=== PATIENT | male | born 1960 | race Caucasian/White ===

== ENCOUNTER 2017-04-27 02:01 | Inpatient (IN) | payer OTHER ==
[~2017-04-27] VITALS: Ht 170.2 cm; Wt 104.3 kg
[2017-04-27] MEDS ORDERED: ONDANSETRON HCL 4MG/2ML VIAL IV NR (02:39)
[2017-04-27] MEDS ORDERED: MORPHINE SULFATE 10 MG/ML CPJ IV NR (02:39)
[2017-04-27] MEDS ORDERED: SODIUM CHLORIDE 0.9% 1,000 ML IV ONE (02:39)
[2017-04-27 03:03] LABS: BASOPHILS % 1.3 % (0.0-2.0); EOSINOPHILS % 1.8 % (0.0-5.0); HEMATOCRIT. 44.3 % (42.0-52.0); HEMOGLOBIN. 15.5 g/dL (14.0-18.0); LYMPHOCYTES % 23.6 % (20.0-50.0); MEAN CORPUSCULAR HEMOGLOBIN 35.3 pg (28.0-32.0); MEAN CORPUSCULAR VOLUME 100.7 fL (80.0-94.0); MEAN PLATELET VOLUME 9.8 fl (7.4-10.4); MONOCYTES % 7.7 % (2.0-8.0); NEUTROPHILS % 65.6 % (40.0-76.0); PLATELET 147 x1000/uL (130-400); RED CELL DISTRIBUTION WIDTH 12.6 % (11.6-14.6)
[2017-04-27 03:12] LABS: D-DIMER 0.23 mg/L FEU (<0.50)
[2017-04-27 03:20] LABS: CARBON DIOXIDE 22 mEq/L (21-32); CHLORIDE 106 mEq/L (98-107); TROPONIN I < 0.02 ng/mL (0.00-0.04)
[2017-04-27] MEDS ORDERED: CLONIDINE 0.1MG TABLET PO PRN (06:45)
[2017-04-27] MEDS ORDERED: LORAZEPAM 0.5MG TABLET PO PRN (06:45)
[2017-04-27] MEDS ORDERED: IPRATROPIUM/ALBUTEROL 0.5-3(2.5)MG/3ML NEB INH PRN (06:45)
[2017-04-27] MEDS ORDERED: GUAIFENESIN 200MG/10ML SUGAR FREE UDC PO PRN (06:45)
[2017-04-27] MEDS ORDERED: MAGNESIUM/ALUMINUM HYDROXIDE/SIMETHICONE 30ML UDC PO PRN (06:45)
[2017-04-27] MEDS ORDERED: DIPHENHYDRAMINE 50MG/ML VIAL IV PRN (06:45)
[2017-04-27] MEDS ORDERED: KETOROLAC 15MG/ML VIAL IV PRN (06:45)
[2017-04-27] MEDS ORDERED: NITROGLYCERIN 0.4MG TABLET SL SL PRN (06:45)
[2017-04-27] MEDS ORDERED: ONDANSETRON HCL 4MG/2ML VIAL IV PRN (06:45)
[2017-04-27 08:45] VITALS: BP 165/111
[2017-04-27] MEDS ORDERED: DOCUSATE SODIUM 100MG CAPSULE PO PRN (09:00)
[2017-04-27] MEDS ORDERED: ENOXAPARIN 40MG/0.4ML SYR SUBCUT SCH (09:00)
[2017-04-27] MEDS ORDERED: NA PHOS,M-B/NA PHOS,DI-BA ENEMA 118ML PR PRN (09:00)
[2017-04-27] MEDS: FAMOTIDINE 20MG/2ML VIAL IV SCH ×2 (09:14→20:07)
[2017-04-27] MEDS: ASPIRIN 325MG EC TABLET PO SCH (09:14)
[2017-04-27] MEDS: METOPROLOL TARTRATE 25MG TABLET PO SCH ×2 (09:14→20:07)
[2017-04-27] MEDS ORDERED: OMEP40CA34 PO (09:31)
[2017-04-27] MEDS ORDERED: POTASSIUM CHLORIDE 20MEQ TABLET SR PO SCH (11:45)
[2017-04-27 12:31] VITALS: BP 157/101
[2017-04-27] MEDS: AMLODIPINE 5MG TABLET PO SCH ×2 (14:43→20:07)
[2017-04-27 16:33] LABS: TROPONIN I 0.64 ng/mL (0.00-0.04)
[2017-04-27 17:12] VITALS: BP 148/102
[2017-04-27] MEDS: GEMFIBROZIL 600MG TABLET PO SCH (17:31)
[2017-04-27] MEDS: ENOXAPARIN 100MG/ML SYR SUBCUT SCH (17:32)
[2017-04-27] MEDS ORDERED: POTASSIUM CHLORIDE 20MEQ/PACKET PO ONE (17:45)
[2017-04-27 20:06] VITALS: BP 146/89
[2017-04-27] MEDS: ZOLPIDEM TARTRATE 5MG TABLET PO PRN (20:07)
[2017-04-27] MEDS: ATORVASTATIN CALCIUM 10MG TABLET PO SCH (20:07)
[2017-04-27 21:48] LABS: *AMPHETAMINES SCREEN URINE NEGATIVE (NEGATIVE); *BARBITURATES SCREEN URINE NEGATIVE (NEGATIVE); *BENZODIAZEPINES SCREEN URINE NEGATIVE (NEGATIVE); *COCAINE SCREEN URINE NEGATIVE (NEGATIVE); CANNABINOID URINE SCREEN NEGATIVE (NEGATIVE); METHADONE URINE SCREEN NEGATIVE (NEGATIVE); OPIATES URINE SCREEN PRESUMTIVE POSITIVE (NEGATIVE); PHENCYCLIDINE URINE SCREEN NEGATIVE (NEGATIVE)
[2017-04-27 23:12] LABS: CREATINE KINASE MB FRACTION 2.3 ng/mL (0.5-3.6)
[2017-04-27 23:16] LABS: TROPONIN I 0.79 ng/mL (0.00-0.04)
[2017-04-28] VITALS (7 sets, daily range): BP systolic 113–141; BP diastolic 68–91
[2017-04-28] MEDS: ACETAMINOPHEN 325MG TABLET PO PRN ×3 (05:01→18:36)
[2017-04-28] MEDS: ENOXAPARIN 100MG/ML SYR SUBCUT SCH (05:01)
[2017-04-28] MEDS ORDERED: NITROGLYCERIN 50MCG/ML 10ML VIAL (CATH LAB) IV ONE (06:00)
[2017-04-28] MEDS ORDERED: NICARDIPINE 100MCG/ML 10ML VIAL (CATH LAB) IV ONE (06:00)
[2017-04-28] MEDS ORDERED: HEPARIN SODIUM 1,000 UNIT/1ML VIAL IV ONE (06:00)
[2017-04-28 07:20] LABS: HEMATOCRIT. 44.7 % (42.0-52.0); HEMOGLOBIN. 15.5 g/dL (14.0-18.0); MEAN CORPUSCULAR HEMOGLOBIN 34.5 pg (28.0-32.0); MEAN CORPUSCULAR VOLUME 99.6 fL (80.0-94.0); MEAN PLATELET VOLUME 10.1 fl (7.4-10.4); PLATELET 136 x1000/uL (130-400); RED BLOOD CELL COUNT 4.48 mill/uL (4.7-6.1); RED CELL DISTRIBUTION WIDTH 12.6 % (11.6-14.6)
[2017-04-28] MEDS: GEMFIBROZIL 600MG TABLET PO SCH ×2 (07:40→17:32)
[2017-04-28 08:12] LABS: CARBON DIOXIDE 26 mEq/L (21-32); CHLORIDE 104 mEq/L (98-107)
[2017-04-28] MEDS: FAMOTIDINE 20MG/2ML VIAL IV SCH ×2 (08:14→21:02)
[2017-04-28] MEDS: AMLODIPINE 5MG TABLET PO SCH ×2 (08:15→21:04)
[2017-04-28] MEDS: METOPROLOL TARTRATE 25MG TABLET PO SCH ×2 (08:15→21:03)
[2017-04-28 08:34] LABS: TROPONIN I 0.39 ng/mL (0.00-0.04)
[2017-04-28] MEDS: ASPIRIN 325MG EC TABLET PO SCH (09:00)
[2017-04-28] MEDS ORDERED: ENOXAPARIN 30MG/0.3ML SYR SUBCUT SCH (09:00)
[2017-04-28] MEDS ORDERED: SODIUM CHLORIDE 0.45% 1,000 ML IV SCH (10:00)
[2017-04-28] MEDS ORDERED: IOHEXOL-300 100 ML BOTTLE ONE ×2 (10:08→11:19)
[2017-04-28] MEDS ORDERED: LIDOCAINE HCL 1% 20ML VIAL (Pyxis) INJ ONE (10:08)
[2017-04-28] MEDS ORDERED: FENTANYL CITRATE/PF 50MCG/ML 2ML VIAL ONE (10:36)
[2017-04-28] MEDS ORDERED: MIDAZOLAM HCL 2 MG/2 ML VIAL ONE (10:36)
[2017-04-28] MEDS ORDERED: IOVERSOL 240MG/ML 100ML BOTTLE IV ONE (11:29)
[2017-04-28] MEDS ORDERED: ATROPINE SULFATE 1MG/10ML SYR IV PRN (12:00)
[2017-04-28] MEDS ORDERED: SODIUM CHLORIDE 0.45% 1,000 ML IV ONE (12:00)
[2017-04-28] MEDS: ATORVASTATIN CALCIUM 10MG TABLET PO SCH (21:03)
[2017-04-28] MEDS: ZOLPIDEM TARTRATE 5MG TABLET PO PRN (21:04)
[2017-04-29] VITALS (7 sets, daily range): BP systolic 113–145; BP diastolic 59–87
[2017-04-29] MEDS: GEMFIBROZIL 600MG TABLET PO SCH (06:49)
[2017-04-29 07:57] LABS: BASOPHILS % 0.6 % (0.0-2.0); EOSINOPHILS % 3.2 % (0.0-5.0); HEMOGLOBIN. 15.1 g/dL (14.0-18.0); LYMPHOCYTES % 28.5 % (20.0-50.0); MEAN CORPUSCULAR VOLUME 99.2 fL (80.0-94.0); MONOCYTES % 9.7 % (2.0-8.0); PLATELET 134 x1000/uL (130-400); RED BLOOD CELL COUNT 4.44 mill/uL (4.7-6.1); RED CELL DISTRIBUTION WIDTH 12.4 % (11.6-14.6)
[2017-04-29] MEDS: FAMOTIDINE 20MG/2ML VIAL IV SCH (08:19)
[2017-04-29] MEDS: AMLODIPINE 5MG TABLET PO SCH (08:19)
[2017-04-29] MEDS: ASPIRIN 325MG EC TABLET PO SCH (08:20)
[2017-04-29] MEDS: METOPROLOL TARTRATE 25MG TABLET PO SCH (08:20)
[2017-04-29] MEDS: ACETAMINOPHEN 325MG TABLET PO PRN (08:25)
[2017-04-29 09:17] LABS: CARBON DIOXIDE 26 mEq/L (21-32); CHLORIDE 104 mEq/L (98-107)
[2017-04-29 20:10] LABS: PLATELET ESTIMATE NORMAL
== END 2017-04-29 10:08 | disposition home or self-care (01) | DRG 282 ==
LOC: ER 02:01 → 8WST 04:16 → EDBEDREQ 04:28 → ENRESERV 07:00 → 3WST 04-28 12:29
PROVIDERS: ADMIT Internal Medicine; ATTEND Internal Medicine
PROC: 4A023N7 Measurement of Cardiac Sampling and Pressure, Left Heart, Percutaneous Approach (ICD-10-PCS; principal; 2017-04-28)
PROC: B2111ZZ Fluoroscopy of Multiple Coronary Arteries using Low Osmolar Contrast (ICD-10-PCS; 2017-04-28)
PROC: B2151ZZ Fluoroscopy of Left Heart using Low Osmolar Contrast (ICD-10-PCS; 2017-04-28)
DX: I21.4 Non-ST elevation (NSTEMI) myocardial infarction (principal); E11.9 Type 2 diabetes mellitus without complications; E78.00 Pure hypercholesterolemia, unspecified; E78.5 Hyperlipidemia, unspecified; E87.6 Hypokalemia; F10.129 Alcohol abuse with intoxication, unspecified; I10 Essential (primary) hypertension; E78.1 Pure hyperglyceridemia; I25.10 Atherosclerotic heart disease of native coronary artery without angina pectoris; Z79.82 Long term (current) use of aspirin; Z79.899 Other long term (current) drug therapy; Z82.49 Family history of ischemic heart disease and other diseases of the circulatory system; Z91.14 Patient's other noncompliance with medication regimen
CPT/HCPCS: 36415; 71010; 80048; 80053; 80061; 80305; 82550; 82553; 82962; 83036; 83690; 84484; 85025; 85347; 85379; 85610; 93005; 93306; 93458; 93571; 93970; 96361; 96374; 96375; 99285; C1769; C1887; C1893; G0482; J1644; J1650; J2250; J2270; J2405; J3010; J3490; J7030; Q9967